=== PATIENT | female | born 1940 | race Caucasian/White ===

== ENCOUNTER 2020-09-29 08:00 | Outpatient (CLI) | payer MEDICARE, OTHER ==
[2020-09-29 18:15] LABS: BASOPHILS # (AUTO) 0.1 10^3/uL (0.0-0.1); BASOPHILS % (AUTO) 0.7 %; EOSINOPHILS # (AUTO) 0.3 10^3/uL (0.0-0.7); EOSINOPHILS % (AUTO) 3.5 %; HCT - HEMATOCRIT 50.7 % (37.0-47.0); HGB - HEMOGLOBIN 16.1 g/dL (12.0-16.0); LYMPHOCYTES # (AUTO) 1.8 10^3/uL (1.5-3.5); LYMPHOCYTES % (AUTO) 24.9 %; MEAN CORPUSCULAR HEMOGLOBIN 29.4 pg (27.0-31.0); MEAN CORPUSCULAR HGB CONC 31.8 g/dL (32.0-36.0); MEAN CORPUSCULAR VOLUME 92.7 fL (81.0-99.0); MEAN PLATELET VOLUME 10.5 fL (7.9-10.8); MONOCYTES # (AUTO) 0.7 10^3/uL (0.0-1.0); MONOCYTES % (AUTO) 9.7 %; NEUTROPHILS # (AUTO) 4.4 10^3/uL (1.5-6.6); NEUTROPHILS % (AUTO) 60.8 %; PLT - PLATELET COUNT 293 10^3/uL (130-450); RED BLOOD COUNT 5.47 10^6/uL (4.20-5.40); RED CELL DISTRIBUTION WIDTH 13.3 % (12.0-15.0); WHITE BLOOD COUNT 7.2 x10^3/uL (4.8-10.8)
[2020-09-29 18:31] LABS: BILIRUBIN,URINE NEGATIVE (NEGATIVE); GLUCOSE, URINE (UA) NEGATIVE (NEGATIVE); KETONES,URINE (UA) NEGATIVE (NEGATIVE); LEUKOCYTE ESTERASE, URINE NEGATIVE (NEGATIVE); NITRITE,URINE NEGATIVE (NEGATIVE); OCCULT BLOOD,URINE NEGATIVE (NEGATIVE); PH,URINE 6.5 PH (5.0-7.5); PROTEIN,URINE NEGATIVE (NEGATIVE); UROBILINOGEN,URINE 0.2 (NORMAL) E.U./dL (NORMAL)
[2020-09-29 18:35] LABS: BACTERIA,URINE None Seen /HPF (None Seen); CLARITY,URINE CLEAR (CLEAR); CRYSTALS,URINE 3-5 Calcium Oxalate /LPF; RBC,URINE 0-5 /HPF (0-5); SQUAMOUS EPITHELIAL CELL,UR FEW Squamous (<= Few); WBC,URINE 0-3 /HPF (0-5)
[2020-09-29 18:42] LABS: ALBUMIN 4.1 g/dL (3.2-5.5); ALKALINE PHOSPHATASE 101 IU/L (42-121); ALT ALANINE AMINOTRANSFERASE 23 IU/L (10-60); AST ASPARTATE AMINOTRANSFERASE 24 IU/L (10-42); BILIRUBIN,TOTAL 0.7 mg/dL (0.2-1.0); BUN - BLOOD UREA NITROGEN 18 mg/dL (6-20); CALCIUM 9.9 mg/dL (8.5-10.3); CARBON DIOXIDE - CO2 30 mmol/L (21-32); CHLORIDE 104 mmol/L (101-111); CHOL/HDL RATIO 3.8 (<4.4); CHOLESTEROL 203 mg/dL; CREATININE 0.9 mg/dL (0.4-1.0); GFR - MDRD 60 (>89); GLUCOSE 102 mg/dL (70-100); HDL CHOLESTEROL 53 mg/dL; LDL CHOLESTEROL,CALCULATED 127 mg/dL; LDL/HDL RATIO 2.4 (<4.4); POTASSIUM 4.2 mmol/L (3.5-5.0); SODIUM 141 mmol/L (135-145); TOTAL PROTEIN 8.2 g/dL (6.7-8.2); TRIGLYCERIDES 113 mg/dL; VLDL CHOLESTEROL 23 mg/dL
[2020-09-29 18:53] LABS: THYROID STIMULATING HORMONE 1.79 uIU/mL (0.34-5.60)
== END 2020-09-29 23:59 | disposition home or self-care (01) ==
LOC: LAB.WCP 08:00
PROVIDERS: ATTEND Family Medicine
DX: N20.0 Calculus of kidney (principal); E66.9 Obesity, unspecified; E78.5 Hyperlipidemia, unspecified; M54.5 Low back pain; G89.29 Other chronic pain; I10 Essential (primary) hypertension
CPT/HCPCS: 36415; 80053; 80061; 81001; 83721; 84443; 85025; 87086

== ENCOUNTER 2021-02-15 10:42 | Outpatient (CLI) | payer MEDICARE, OTHER ==
--- NOTE | 2021-02-15 11:30 | XRAY Report ---
PROCEDURE: Hip w/Pelvis 2-3V RT INDICATIONS: RIGHT HIP JOINT PAIN TECHNIQUE: AP pelvis with lateral view(s) of the right hip(s). COMPARISON: None. FINDINGS: Bones: No fractures or dislocations. Pelvic ring appears intact. No suspicious bony lesions. Ther e is mild symmetric hip joint degenerative osteoarthritis, without trauma. Note is made of a 1.2 cm n onspecific sclerotic focus within the left iliac bone just beneath the medial left iliac crests. The etiology is uncertain, and it would be beneficial to establish chronicity. Soft tissues: The visualized bowel gas pattern is normal. No suspicious soft tissue calcifications. IMPRESSION: Mild symmetric bilateral hip joint osteoarthritis, without trauma. A source of asymmetri c right-sided predominant pain is not identified. As discussed above there is a 1.2 cm mildly irregular sclerotic focus within the marrow space of the medial left iliac crest area, without atypical appearance of bone island. It would be beneficial to o btain old comparison films may show this area to establish chronicity. If comparison studies are not available for review a follow-up pelvis plain film in 3 and 6 months thereafter (assuming stability) is recommended. This could represent a neoplastic process and requires follow-up. Reviewed by: Helio Denton MD on 02/15/2021 11:29 AM PDT Approved by: Helio Denton MD on 02/15/2021 11:29 AM PDT Station ID: [id number]
--- NOTE | 2021-02-15 13:46 | XRAY Report ---
PROCEDURE: Lumbar Spine 2 View INDICATIONS: CHRONIC LOWER BACK PAIN TECHNIQUE: 2 views of the lumbar spine were acquired. COMPARISON: None. FINDINGS: Bones: 5 [id number] vertebrae are present. There is normal bony alignment. No vertebral body compression fractures. No suspicious bony lesions. There are multilevel degenerative changes with a nterior osteophytes and posterior disc osteophytes at multiple levels. Facet arthrosis is seen in the lower lumbar spine with grade 1 anterolisthesis of L4-5. Disc space narrowing in the lumbar spine at L2-3, L3-4, and L5-S1 are consistent with disc disease. Disc space narrowing the lower thoracic spin e is also present. An X stop device is present at L4-5 posteriorly. Soft tissues: Overlying bowel gas pattern is normal. No suspicious soft tissue calcifications. The aorta has atherosclerotic calcifications. IMPRESSION: 1. Multilevel degenerative changes of the lumbar spine. 2. 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 3. Facet arthrosis causing grade 1 anterolisthesis of L4-5. Reviewed by: Shawn Martinez on 02/15/2021 1:44 PM PDT Approved by: Shawn Martinez on 02/15/2021 1:44 PM PDT Station ID: [id number]
== END 2021-02-15 10:43 | disposition home or self-care (01) ==
LOC: DI 10:42
PROVIDERS: ATTEND Family Medicine
DX: M25.551 Pain in right hip (principal); M16.0 Bilateral primary osteoarthritis of hip; R93.6 Abnormal findings on diagnostic imaging of limbs; M47.816 Spondylosis without myelopathy or radiculopathy, lumbar region; M43.16 Spondylolisthesis, lumbar region; M51.36 Other intervertebral disc degeneration, lumbar region; M51.37 Other intervertebral disc degeneration, lumbosacral region; Z98.890 Other specified postprocedural states

== ENCOUNTER 2021-05-16 13:22 | Emergency (ER) | payer MEDICARE, OTHER ==
[2021-05-16 13:58] LABS: BASOPHILS # (AUTO) 0.1 10^3/uL (0.0-0.1); BASOPHILS % (AUTO) 0.8 %; EOSINOPHILS # (AUTO) 0.3 10^3/uL (0.0-0.7); EOSINOPHILS % (AUTO) 3.4 %; HCT - HEMATOCRIT 48.6 % (37.0-47.0); HGB - HEMOGLOBIN 15.7 g/dL (12.0-16.0); LYMPHOCYTES # (AUTO) 1.8 10^3/uL (1.5-3.5); LYMPHOCYTES % (AUTO) 19.7 %; MEAN CORPUSCULAR HEMOGLOBIN 29.9 pg (27.0-31.0); MEAN CORPUSCULAR HGB CONC 32.3 g/dL (32.0-36.0); MEAN CORPUSCULAR VOLUME 92.6 fL (81.0-99.0); MEAN PLATELET VOLUME 9.8 fL (7.9-10.8); MONOCYTES # (AUTO) 0.9 10^3/uL (0.0-1.0); MONOCYTES % (AUTO) 9.4 %; NEUTROPHILS % (AUTO) 66.1 %; PLT - PLATELET COUNT 277 10^3/uL (130-450); RED BLOOD COUNT 5.25 10^6/uL (4.20-5.40); RED CELL DISTRIBUTION WIDTH 13.2 % (12.0-15.0); WHITE BLOOD COUNT 9.1 x10^3/uL (4.8-10.8)
[2021-05-16 13:59] LABS: BILIRUBIN,URINE NEGATIVE (NEGATIVE); GLUCOSE, URINE (UA) NEGATIVE (NEGATIVE); KETONES,URINE (UA) NEGATIVE (NEGATIVE); LEUKOCYTE ESTERASE, URINE NEGATIVE (NEGATIVE); NITRITE,URINE NEGATIVE (NEGATIVE); OCCULT BLOOD,URINE NEGATIVE (NEGATIVE); PROTEIN,URINE NEGATIVE (NEGATIVE); UROBILINOGEN,URINE 0.2 (NORMAL) E.U./dL (NORMAL)
[2021-05-16 14:01] LABS: CLARITY,URINE CLEAR (CLEAR)
[2021-05-16] MEDS ORDERED: IOVERSOL 320 100 ML VIAL IVP ONE (14:13)
--- NOTE | 2021-05-16 14:22 | ED Physician Documentation ---
History of Present Illness - Stated complaint Stated Complaint: R SIDE PX/SENT BY - Chief complaint Chief Complaint: Abd Pain - History obtained from History obtained from: Patient - Additonal information Additional information: Pt comes emergency department chief complaint of right lower back pain that started about 2 days ago. No specific trigger. Patient denies trauma. No fevers or chills. No nausea or vomiting. No dysuria or hematuria. Patient has a history of diverticulitis which has been on the right side, but she states that she has generally had pain in the right lower quadrant and suprapubic area during these episodes, she does not have this time. She does note that the pain now radiates eights into her right flank. No history of kidney stones. No other complaints at this time. No loss of bowel or bladder function. No numbness or weakness in her lower extremities. Review of Systems Ten Systems: 10 systems reviewed and negative Constitutional: reports: Reviewed and negative Eyes: reports: Reviewed and negative Ears: reports: Reviewed and negative Nose: reports: Reviewed and negative Throat: reports: Reviewed and negative Cardiac: reports: Reviewed and negative Respiratory: reports: Reviewed and negative GI: reports: Reviewed and negative. denies: Abdominal Pain, Nausea : reports: Reviewed and negative Skin: reports: Reviewed and negative Musculoskeletal: reports: Back pain Neurologic: reports: Reviewed and negative Psychiatric: reports: Reviewed and negative Endocrine: reports: Reviewed and negative Immunocompromised: reports: Reviewed and negative PD PAST MEDICAL HISTORY - Past Medical History Past Medical History: Yes Cardiovascular: Hypertension Respiratory: None Neuro: None Endocrine/Autoimmune: None GI: None [employer]: None : None HEENT: None Psych: None Musculoskeletal: Chronic back pain Derm: Herpes zoster - Past Surgical History Past Surgical History: Yes General: Appendectomy Ortho: Spine surgery /[employer]: Hysterectomy - Present Medications Home Medications: Ambulatory Orders Medication Instructions Recorded Confirmed Cyanocobalamin (Vitamin B-12) 1,000 mcg PO DAILY 05/16/21 05/16/21 [Vitamin B12] Cyclobenzaprine [Flexeril] 10 mg PO TID PRN #20 tablet 05/16/21 Losartan [Cozaar] 50 mg PO DAILY 05/16/21 05/16/21 Naproxen Sodium [Aleve] 440 mg PO HS 05/16/21 05/16/21 Ubidecarenone [Co Q-10] 200 mg PO DAILY 05/16/21 05/16/21 - Allergies Allergies/Adverse Reactions: Allergies Allergy/AdvReac Type Severity Reaction Status Date / Time nitrofurantoin Allergy Hives Verified 05/16/21 13:31 [From Macrodantin] - Social History Does the pt smoke?: No Smoking Status: Former smoker Does the pt drink ETOH?: Yes ETOH Use: Wine Does the pt have substance abuse?: No - Immunizations Immunizations are current?: Yes PD ED PE NORMAL - Vitals Vital signs reviewed: Yes - General General: Alert and oriented X 3, No acute distress, Well developed/nourished - HEENT HEENT: Atraumatic, PERRL, EOMI, Moist mucous membranes - Neck Neck: Supple, no meningeal sign - Cardiac Cardiac: RRR, No murmur, Strong equal pulses - Respiratory Respiratory: No respiratory distress, Clear bilaterally - Abdomen Abdomen: Soft, Non tender, Non distended - Back Back: No spinal TTP, Other (Tenderness of her right CVA and slightly lower.) - Derm Derm: Normal color, Warm and dry, No rash - Extremities Extremities: No deformity, No edema - Neuro Neuro: Alert and oriented X 3 - Psych Psych: Normal mood, Normal affect Results - Vitals Vitals: Vital Signs - 24 hr 05/16/21 05/16/21 13:31 14:55 Temperature 37.6 C Heart Rate 92 80 Respiratory 20 18 Rate Blood Pressure 159/93 H 157/79 H O2 Saturation 97 96 Oxygen O2 Source Room air - Labs Labs: Laboratory Tests 05/16/21 05/16/21 05/16/21 13:50 13:50 13:50 WBC 9.1 RBC 5.25 Hgb 15.7 Hct 48.6 H MCV 92.6 MCH 29.9 MCHC 32.3 RDW 13.2 Plt Count 277 MPV 9.8 Neut # (Auto) 6.0 Lymph # (Auto) 1.8 [place] # (Auto) 0.9 Eos # (Auto) 0.3 Baso # (Auto) 0.1 Absolute Nucleated RBC 0.00 Nucleated RBC % 0.0 Sodium 138 Potassium 3.5 Chloride 101 Carbon Dioxide 28 Anion Gap 9.0 BUN 20 Creatinine 1.0 Estimated GFR (MDRD) 53 L Glucose 97 Calcium 9.4 Total Bilirubin 0.5 AST 29 ALT 26 Alkaline Phosphatase 93 Total Protein 8.6 H Albumin 4.3 Globulin 4.3 H Albumin/Globulin Ratio 1.0 Lipase 48 Urine Color YELLOW Urine Clarity CLEAR Urine pH 7.0 Ur Specific [place] 1.010 Urine Protein NEGATIVE Urine Glucose (UA) NEGATIVE Urine Ketones NEGATIVE Urine Occult Blood NEGATIVE Urine Nitrite NEGATIVE Urine Bilirubin NEGATIVE Urine Urobilinogen 0.2 (NORMAL) Ur Leukocyte Esterase NEGATIVE Ur Microscopic Review NOT INDICATED Urine Culture Comments NOT INDICATED - Rads (name of study) Abdomen and pelvis CT Radiology: Final report received, EMP read indepedently, See rad report (nad) PD MEDICAL DECISION MAKING - ED course Complexity details: reviewed results, re-evaluated patient, considered differential, d/w patient ED course: Patient was treated symptomatically with Toradol and worked up with labs and CT of the abdomen and pelvis. Unfortunately, our power went out due to weather conditions and an ER abdominal panel was not able to be run on this patient. CT scan was negative. I felt the patient's pain was most consistent with a muscular etiology. We have treated her with Toradol here in the emergency department and I prescribed Flexeril. We have discussed home management symptoms and usual indications for return. Departure - Departure Disposition: 01 Home, Self Care Clinical Impression: Lumbar back pain Condition: Stable Instructions: ED Neck Back Pain General Prescriptions: Cyclobenzaprine [Flexeril] 10 mg PO TID PRN #20 tablet PRN Reason: Spasms Comments: Your chest CT scan showed no diverticulitis or kidney stone that is currently passing. You have a small stone in your right kidney which is not currently passing. I suspect your back pain is probably muscular in nature, given the lack of internal findings and the very focused area of tenderness. You may take ibuprofen along with the Flexeril that has been prescribed. If your pain goes on for more than a week, please follow-up with your primary care physician. Discharge Date/Time: 05/16/21 15:52
[2021-05-16 14:29] LABS: ALBUMIN 4.3 g/dL (3.2-5.5); BILIRUBIN,TOTAL 0.5 mg/dL (0.2-1.0); CALCIUM 9.4 mg/dL (8.5-10.3); POTASSIUM 3.5 mmol/L (3.5-5.0); TOTAL PROTEIN 8.6 g/dL (6.7-8.2)
[2021-05-16] MEDS ORDERED: KETOROLAC 30 MG/ML VIAL IVP STA (14:42)
--- NOTE | 2021-05-16 14:53 | CT Report ---
PROCEDURE: Abdomen/Pelvis WO INDICATIONS: R flank pain TECHNIQUE: Noncontrast 5 mm thick sections acquired from the diaphragms to the symphysis. 5 mm coronal and sagi ttal reformats were then performed. For radiation dose reduction, the following was used: automated exposure control, adjustment of mA and/or kV according to patient size. COMPARISON: None. FINDINGS: Image quality: Excellent. ABDOMEN: Lung bases: There is atelectasis and scarring the lung bases. Heart size is normal. Solid organs: Evaluation of the liver demonstrates no focal hepatic lesions. Gallbladder appears wit hin normal limits without calcified gallstones. Biliary system is non dilated. The spleen is normal in size. Pancreas demonstrates mild fatty infiltration without peripancreatic fat stranding or fluid collections. No adrenal nodules. Kidneys demonstrate no hydronephrosis. There is a small oval fat-c ontaining mass within the right kidney anteriorly measuring up to 2.2 cm consistent with an angiomyol ipoma. There is a posterior exophytic cyst also noted within the right kidney measuring up to 4.2 cm. A small calcification within the interpolar region of the right kidney measuring up to 0.2 cm likely represents a nonobstructing renal stone. There is minimal nonspecific perinephric stranding bilatera lly. The ureters are nondistended. Peritoneum and bowel: Unenhanced bowel loops demonstrate normal wall thickness and caliber. No peric ecal inflammatory changes to suggest appendicitis. There is colonic diverticulosis without acute dive rticulitis. No free fluid or air. Nodes and vessels: No retroperitoneal or mesenteric adenopathy by size criteria. Aorta and inferior vena cava are normal in caliber. Miscellaneous: No ventral hernias. PELVIS: Genitourinary: Bladder wall thickness is normal. Miscellaneous: No inguinal hernias or adenopathy. Bones: No suspicious bony lesions. No vertebral body compression fractures. IMPRESSION: 1. No evidence of obstructive uropathy. 2. Small nonobstructing stone within the right kidney. 3. 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 4. No evidence of appendicitis. 5. Colonic diverticulosis without acute diverticulitis. Reviewed by: Robby Lal MD on 05/16/2021 2:52 PM PST Approved by: Robby Lal MD on 05/16/2021 2:52 PM PST Station ID: [id number]
[2021-05-16 14:56] VITALS: BP 157/79
== END 2021-05-16 15:52 | disposition home or self-care (01) ==
LOC: ED 13:22
DX: M54.50 Low back pain, unspecified (principal); Z87.891 Personal history of nicotine dependence; R10.9 Unspecified abdominal pain
CPT/HCPCS: 36415; 80053; 81001; 81003; 83690; 85025; 87086; 96374; 99283

== ENCOUNTER 2021-05-16 13:57 | Outpatient (CLI) | payer MEDICARE, OTHER | END 2021-05-16 13:58 | disposition home or self-care (01) | LOC: LAB 13:57 | PROVIDERS: ATTEND Family Medicine | DX: R10.9 Unspecified abdominal pain (principal) | CPT/HCPCS: 87086 ==

== ENCOUNTER 2021-12-10 10:04 | Outpatient (CLI) | payer MEDICARE, OTHER ==
[2021-12-10 19:09] LABS: BASOPHILS # (AUTO) 0.1 10^3/uL (0.0-0.1); EOSINOPHILS # (AUTO) 0.3 10^3/uL (0.0-0.7); EOSINOPHILS % (AUTO) 3.6 %; HCT - HEMATOCRIT 49.4 % (37.0-47.0); HGB - HEMOGLOBIN 15.9 g/dL (12.0-16.0); LYMPHOCYTES # (AUTO) 1.6 10^3/uL (1.5-3.5); LYMPHOCYTES % (AUTO) 22.1 %; MEAN CORPUSCULAR HEMOGLOBIN 29.3 pg (27.0-31.0); MEAN CORPUSCULAR HGB CONC 32.2 g/dL (32.0-36.0); MEAN PLATELET VOLUME 10.2 fL (7.9-10.8); MONOCYTES # (AUTO) 0.6 10^3/uL (0.0-1.0); MONOCYTES % (AUTO) 8.4 %; NEUTROPHILS # (AUTO) 4.7 10^3/uL (1.5-6.6); NEUTROPHILS % (AUTO) 64.3 %; PLT - PLATELET COUNT 278 10^3/uL (130-450); RED BLOOD COUNT 5.43 10^6/uL (4.20-5.40); RED CELL DISTRIBUTION WIDTH 13.2 % (12.0-15.0); WHITE BLOOD COUNT 7.2 x10^3/uL (4.8-10.8)
[2021-12-10 19:40] LABS: THYROID STIMULATING HORMONE 1.99 uIU/mL (0.34-5.60)
[2021-12-10 19:48] LABS: ALKALINE PHOSPHATASE 97 IU/L (42-121); ALT ALANINE AMINOTRANSFERASE 19 IU/L (10-60); AST ASPARTATE AMINOTRANSFERASE 21 IU/L (10-42); BILIRUBIN,TOTAL 0.7 mg/dL (0.2-1.0); BUN - BLOOD UREA NITROGEN 19 mg/dL (6-20); CALCIUM 9.4 mg/dL (8.5-10.3); CARBON DIOXIDE - CO2 29 mmol/L (21-32); CHLORIDE 103 mmol/L (101-111); CHOL/HDL RATIO 3.8 (<4.4); CHOLESTEROL 189 mg/dL; CREATININE 1.1 mg/dL (0.4-1.0); GFR - MDRD 48 (>89); GLUCOSE 104 mg/dL (70-100); HDL CHOLESTEROL 50 mg/dL; LDL CHOLESTEROL,CALCULATED 111 mg/dL; LDL/HDL RATIO 2.2 (<4.4); POTASSIUM 4.3 mmol/L (3.5-5.0); SODIUM 138 mmol/L (135-145); TOTAL PROTEIN 8.1 g/dL (6.7-8.2); TRIGLYCERIDES 142 mg/dL; VLDL CHOLESTEROL 28 mg/dL
== END 2021-12-10 10:05 | disposition home or self-care (01) ==
LOC: LAB.N 10:04
PROVIDERS: ATTEND Family Medicine
DX: M54.50 Low back pain, unspecified (principal); E53.8 Deficiency of other specified B group vitamins; E66.3 Overweight; E78.5 Hyperlipidemia, unspecified; I10 Essential (primary) hypertension; R10.9 Unspecified abdominal pain; G89.29 Other chronic pain
CPT/HCPCS: 36415; 80053; 80061; 82607; 83721; 84443; 85025; 87086

== ENCOUNTER 2021-12-28 13:13 | Outpatient (CLI) | payer MEDICARE, OTHER ==
--- NOTE | 2021-12-28 17:55 | Ultrasound Report ---
PROCEDURE: Arterial Visceral Complete INDICATIONS: KIDNEY CYST,ELEVATED CREATININE, ANGIOMYOLIPOMA OF TECHNIQUE: Real time scanning was performed of both kidneys, followed by Color and pulsed Doppler in terrogation of the renal vessels. COMPARISON: None FINDINGS: Aortic peak systolic velocity: 69.2 cm/s. Right side: Soares-scale imaging: Kidney is 10.5 cm long; renal cortical thickness is 1.4 cm. No hydronephrosis. No nephrolithiasis. Renal cortex is normal in echogenicity. No suspicious solid renal masses. Proximal renal artery peak systolic velocity: 101 cm/s. Mid renal artery peak systolic velocity: 143.9 cm/s. Distal renal artery peak systolic velocity: 130.3 cm/s. Renal vein: Patent, without thrombus. Peak renal/aortic ratio (RAR): 2.1. Left side: Soares-scale imaging: Kidney is 10.6 cm long; renal cortical thickness is 1.2 cm. No hydronephrosis. No nephrolithiasis. Renal cortex is normal in echogenicity. No suspicious solid renal masses. Proximal renal artery peak systolic velocity: 136.3 cm/s. Mid-renal artery peak systolic velocity: 105 cm/s. Distal renal artery peak systolic velocity: 97.9 cm/s. Renal vein: Patent, without thrombus. Peak renal/aortic ratio (RAR): 2.0. IMPRESSION: 1. Normal-sized kidneys with no evidence of hydronephrosis or mass. 2. No evidence of renal artery stenosis. Reviewed by: Doroteo Fine MD on 12/28/2021 5:54 PM PDT Approved by: Doroteo Fine MD on 12/28/2021 5:54 PM PDT Station ID: [id number]
== END 2021-12-28 13:14 | disposition home or self-care (01) ==
LOC: DI 13:13
PROVIDERS: ATTEND Physician Assistant
DX: N28.1 Cyst of kidney, acquired (principal); D30.00 Benign neoplasm of unspecified kidney; R79.89 Other specified abnormal findings of blood chemistry
CPT/HCPCS: 93975

== ENCOUNTER 2022-01-25 10:40 | Outpatient (CLI) | payer MEDICARE, OTHER ==
--- NOTE | 2022-01-30 10:21 | Mammography Report ---
BILATERAL DIGITAL SCREENING MAMMOGRAM 3D/2D: 01/25/2022 CLINICAL: Routine screening. Additional films were requested but not obtained. There are scattered fibroglandular elements in bot h breasts. No significant masses, calcifications, or other findings are seen in either breast. IMPRESSION: NEGATIVE There is no mammographic evidence of malignancy. A 1 year screening mammogram is recommended. Based on the Tyrer Cuzick model (a risk assessment model) the patients lifetime risk is 0.6% and her 10 year risk is 0.0%. According to the ACR, ACS, and NCCN guidelines, an annual breast MRI exam shan g with mammogram is recommended if the patients lifetime risk is 20% or greater. This exam was interpreted at Station ID: [id number]. NOTE: For mammograms, a report in lay terms will be sent to the patient. Approximately 15% of breast malignancies will not be visualized mammographically. In the management of a palpable breast mass, a negative mammogram must not discourage biopsy of a clinically suspicious lesion. Electronically Signed By: Stew em/danna:01/30/2022 08:19:16 ACR BI-RADS Category 1: Negative 3341F PARENCHYMAL PATTERN: (A) - The breast(s) demonstrate(s) scattered fibroglandular densities. BI-RADS CATEGORY: (1) - 1 RECOMMENDATION: (ANNUAL) - Recommend routine annual screening mammography. [id number] 1 year screening LATERALITY: (B)
== END 2022-01-25 10:41 | disposition home or self-care (01) ==
LOC: DI.N 10:40
DX: Z12.31 Encounter for screening mammogram for malignant neoplasm of breast (principal)

== ENCOUNTER 2023-03-19 10:01 | Outpatient (CLI) | payer MEDICARE, OTHER ==
[2023-03-19 12:33] LABS: BASOPHILS # (AUTO) 0.1 10^3/uL (0.0-0.1); EOSINOPHILS # (AUTO) 0.4 10^3/uL (0.0-0.7); HCT - HEMATOCRIT 49.6 % (37.0-47.0); HGB - HEMOGLOBIN 15.8 g/dL (12.0-16.0); LYMPHOCYTES # (AUTO) 1.9 10^3/uL (1.5-3.5); LYMPHOCYTES % (AUTO) 25.9 %; MEAN CORPUSCULAR HEMOGLOBIN 28.8 pg (27.0-31.0); MEAN CORPUSCULAR HGB CONC 31.9 g/dL (32.0-36.0); MEAN CORPUSCULAR VOLUME 90.3 fL (81.0-99.0); MEAN PLATELET VOLUME 10.2 fL (7.9-10.8); MONOCYTES # (AUTO) 0.6 10^3/uL (0.0-1.0); NEUTROPHILS # (AUTO) 4.3 10^3/uL (1.5-6.6); NEUTROPHILS % (AUTO) 59.7 %; PLT - PLATELET COUNT 275 10^3/uL (130-450); RED BLOOD COUNT 5.49 10^6/uL (4.20-5.40); RED CELL DISTRIBUTION WIDTH 13.4 % (12.0-15.0); WHITE BLOOD COUNT 7.2 x10^3/uL (4.8-10.8)
[2023-03-19 12:56] LABS: ALBUMIN 4.2 g/dL (3.2-5.5); ALBUMIN/GLOBULIN RATIO 1.2 (1.0-2.2); ALKALINE PHOSPHATASE 91 IU/L (42-121); ALT ALANINE AMINOTRANSFERASE 21 IU/L (10-60); AST ASPARTATE AMINOTRANSFERASE 23 IU/L (10-42); BILIRUBIN,TOTAL 0.6 mg/dL (0.2-1.0); BUN - BLOOD UREA NITROGEN 18 mg/dL (6-20); CALCIUM 9.5 mg/dL (8.5-10.3); CARBON DIOXIDE - CO2 29 mmol/L (21-32); CHLORIDE 107 mmol/L (101-111); CHOL/HDL RATIO 3.8 (<4.4); CHOLESTEROL 192 mg/dL; GFR - MDRD 53 (>89); GLUCOSE 112 mg/dL (74-104); HDL CHOLESTEROL 50 mg/dL; LDL CHOLESTEROL,CALCULATED 115 mg/dL; LDL/HDL RATIO 2.3 (<4.4); POTASSIUM 4.6 mmol/L (3.5-4.5); SODIUM 141 mmol/L (135-145); TOTAL PROTEIN 7.8 g/dL (6.4-8.9); TRIGLYCERIDES 137 mg/dL (48-352); VLDL CHOLESTEROL 27 mg/dL
[2023-03-19 13:04] LABS: THYROID STIMULATING HORMONE 1.88 uIU/mL (0.34-5.60)
== END 2023-03-19 10:02 | disposition home or self-care (01) ==
LOC: LAB.N 10:01
PROVIDERS: ATTEND Physician Assistant
DX: I10 Essential (primary) hypertension (principal); E78.5 Hyperlipidemia, unspecified; Z79.899 Other long term (current) drug therapy
CPT/HCPCS: 36415; 80053; 80061; 83721; 84443; 85025

== ENCOUNTER 2023-12-31 08:00 | Outpatient (CLI) | payer MEDICARE, OTHER ==
[2023-12-31 20:53] LABS: BILIRUBIN,URINE NEGATIVE (NEGATIVE); GLUCOSE, URINE (UA) NEGATIVE (NEGATIVE); KETONES,URINE (UA) NEGATIVE (NEGATIVE); LEUKOCYTE ESTERASE, URINE NEGATIVE (NEGATIVE); NITRITE,URINE NEGATIVE (NEGATIVE); OCCULT BLOOD,URINE MODERATE (NEGATIVE); PROTEIN,URINE NEGATIVE (NEGATIVE); UROBILINOGEN,URINE 0.2 (NORMAL) E.U./dL (NORMAL)
[2023-12-31 21:12] LABS: BACTERIA,URINE Many /HPF (None Seen); CLARITY,URINE CLOUDY (CLEAR); CRYSTALS,URINE 11-25 Ca Oxalate /LPF; SQUAMOUS EPITHELIAL CELL,UR FEW Squamous (<= Few)
== END 2023-12-31 23:59 | disposition home or self-care (01) ==
LOC: LAB.N 08:00
PROVIDERS: ATTEND Family Medicine
DX: R30.0 Dysuria (principal)
CPT/HCPCS: 81001; 87086

== ENCOUNTER 2024-01-14 08:00 | Outpatient (CLI) | payer MEDICARE, OTHER ==
[2024-01-14 19:02] LABS: BILIRUBIN,URINE NEGATIVE (NEGATIVE); GLUCOSE, URINE (UA) NEGATIVE (NEGATIVE); KETONES,URINE (UA) NEGATIVE (NEGATIVE); LEUKOCYTE ESTERASE, URINE NEGATIVE (NEGATIVE); NITRITE,URINE NEGATIVE (NEGATIVE); OCCULT BLOOD,URINE LARGE (NEGATIVE); PROTEIN,URINE TRACE mg/dL (NEGATIVE); UROBILINOGEN,URINE 0.2 (NORMAL) E.U./dL (NORMAL)
[2024-01-14 19:18] LABS: CLARITY,URINE CLOUDY (CLEAR)
[2024-01-14 20:26] LABS: BACTERIA,URINE Many /HPF (None Seen); SQUAMOUS EPITHELIAL CELL,UR NONE SEEN (<= Few); WBC,URINE 0-3 /HPF (0-5)
== END 2024-01-14 23:59 | disposition home or self-care (01) ==
LOC: LAB.N 08:00
PROVIDERS: ATTEND Family Medicine
DX: R31.21 Asymptomatic microscopic hematuria (principal)
CPT/HCPCS: 81001; 87086

== ENCOUNTER 2024-01-17 08:00 | Outpatient (CLI) | payer MEDICARE, OTHER | END 2024-01-17 23:59 | disposition home or self-care (01) | LOC: LAB.N 08:00 | PROVIDERS: ATTEND Physician Assistant | DX: R30.0 Dysuria (principal) | CPT/HCPCS: 87086; 87181 ==

== ENCOUNTER 2024-01-31 00:55 | Day surgery (SDC) | payer MEDICARE, OTHER ==
[2024-01-31] MEDS: KETOROLAC TROMETHAMINE 0.5% OPHTH DROPS 5 ML ONE (09:55)
[2024-01-31] MEDS: CYCLOPENTOLATE 1% OPHTH DROPS 2 ML ONE (09:55)
[2024-01-31] MEDS: PHENYLEPHRINE 2.5% OPHTH 2 ML DROPS ONE (09:55)
[2024-01-31] MEDS: PROPARACAINE 0.5% OPHTH DROPS 15 ML ONE (09:55)
[2024-01-31] MEDS: LACTATED RINGERS 1,000 ML IV ONE (09:59)
[2024-01-31] MEDS ORDERED: MIDAZOLAM 2 MG/2 ML VIAL ONE (11:13)
[2024-01-31] MEDS ORDERED: TRIAMCIN/MOXIFLOX OPHTHALMIC 0.6 ML VIAL IO ONE (12:06)
[2024-01-31] MEDS ORDERED: EPINEPHrine 1 MG/ML AMP ONE (12:06)
[2024-01-31] MEDS ORDERED: BSS/LIDOCAINE/EPINEPHRINE 1 ML VIAL ONE (12:07)
[2024-01-31] MEDS ORDERED: BRIMONIDINE 0.2% OPHTH DROPS 5 ML ONE (12:07)
[2024-01-31] MEDS ORDERED: TIMOLOL 0.5% OPHTH DROPS ONE (12:07)
[2024-01-31] MEDS: BRIMONIDINE 0.2% OPHTH DROPS 5 ML OPTH ONE (12:10)
[2024-01-31] MEDS: BSS/LIDOCAINE/EPINEPHRINE 1 ML SYRINGE IO ONE (12:11)
[2024-01-31] MEDS: TIMOLOL 0.5% OPHTH DROPS OPTH ONE (12:11)
[2024-01-31] MEDS: TRIAMCIN/MOXIFLOX OPHTHALMIC 0.6 ML VIAL IO ONE (12:11)
[2024-01-31] MEDS: EPINEPHrine 1 MG/ML AMP IR ONE (12:11)
[2024-01-31] MEDS: VANCOMYCIN OPHTH (TOPICAL) 10 MG/ML SYRINGE TOP ONE (12:12)
[2024-01-31] MEDS: PROPARACAINE 0.5% OPHTH DROPS 15 ML EACHEYE ONE (12:12)
[2024-01-31] MEDS ORDERED: fentaNYL 100 MCG/2 ML VIAL ONE (12:30)
[2024-01-31] MEDS: LACTATED RINGERS 700 ML IV ONE ×2 (12:45→13:16)
--- NOTE | 2024-01-31 12:45 | OPERATIVE REPORT ---
Operative Report - Other Other Information/Narrative: Date of Surgery: 01/31/24 Preop Dx: Visually significant cataract right eye. This was the first cataract surgery. Postop Dx: Same Procedure: Phacoemulsification with posterior chamber intraocular lens implant right eye Surgeon: Dr. aBldemar Contreras Anesthesia: Monitored anesthesia care Complications: None Operative Indications: This is a 83-year-old F with progressive vision loss in the right eye due to 2+ nuclear sclerotic, 3+ cortical, and 1+ posterior subcapsular cataract. Best corrected visual acuity was 20/25 with glare to 20/630 vision in the right eye. Indications for surgery were: - Difficulty seeing words, closed captions, or game scores on TV - Difficulty seeing street signs - Difficulty with glare or bright lights in any situation The patient was consented at length concerning the risks and benefits of cataract surgery after which the patient expressed a desire to proceed with surgery. Operative Procedure: The patient was taken into OR#3 and placed under monitored anesthesia care. A surgical time-out was conducted confirming correct patient, correct procedure, and correct surgical site. The patient was given topical anesthesia and then prepped and draped in the usual sterile fashion. The eye was entered at the 6 and 3 oclock positions. Intracameral Shugarcaine was injected into the anterior chamber followed by a dispersive viscoelastic. A continuous-tear curvilinear capsulorhexis was performed. The nucleus was hydrodissected and phacoemulsified. The cortex was evacuated using automated infusion and aspiration. A cohesive viscoelastic was injected into the capsular bag and a 17.5 diopter intraocular lens was inserted into the bag. Infusion and aspiration were used to evacuate the viscoelastic materials from the eye. The wounds were hydrated and the eye inflated to physiologic pressure using balanced salt solution. Approximately 0.25ml of a mixture of triamcinolone and moxifloxacin was injected trans-sclerally into the vitreous in the inferotemporal quadrant using a 30 gauge cannula. An additional 0.25ml of a mixture of triamcinolone and moxifloxacin was injected subconjunctivally in the superior quadrant for infection and inflammation prophylaxis. Wound integrity was checked with Weck-Nayely sponges. The patient was taken from the operating room in good condition and given post-op instructions.
[2024-01-31 13:03] VITALS: BP 134/52; O2SAT 94
--- NOTE | 2024-01-31 16:56 | ANESTHESIA ---
Pre-Anesthesia VS, & Labs - Diagnosis right eye cataract - Procedure right eye cataract extraction with IOL implant Vital Signs: Temp Pulse Resp BP Pulse Ox O2 Flow Rate 36.1 C L 85 16 134/52 H 94 0 01/31/24 12:57 01/31/24 12:57 01/31/24 12:57 01/31/24 12:57 01/31/24 12:57 01/31/24 09:53 Height: 5 ft 2 in Weight (kg): 86 kg Body Mass Index: 34.7 BMI Classification: Obese - NPO >8 hours - Is Patient ?: No Home Medications and Allergies Home Medications: Ambulatory Orders Cyanocobalamin (Vitamin B-12) [Vitamin B-12] 1,000 mcg PO DAILY 01/30/24 Cyanocobalamin (Vitamin B-12) [Vitamin B12] 1,000 mcg PO DAILY 05/16/21 Losartan [Cozaar] 50 mg PO DAILY 05/16/21 Naproxen Sodium [Aleve] 440 mg PO HS 05/16/21 Ubidecarenone [Co Q-10] 200 mg PO DAILY 05/16/21 Cyanocobalamin (Vitamin B-12) [Vitamin B-12] 1,000 mcg PO DAILY 01/30/24 Allergies/Adverse Reactions: Allergies Allergy/AdvReac Type Severity Reaction Status Date / Time codeine Allergy Unknown Verified 01/31/24 10:07 nitrofurantoin Allergy Hives Verified 01/30/24 13:48 [From Macrodantin] Anes History & Medical History - Anesthetic History Anesthesia Complications: reports: No previous complications - Medical History Cardiovascular: reports: Hypertension Pulmonary: reports: None Gastrointestinal: reports: None Urinary: reports: None Neuro: reports: None Musculoskeletal: reports: Chronic back pain Endocrine/Autoimmune: reports: None Blood Disorders: reports: None Skin: reports: Herpes zoster Smoking Status: Former smoker Psychosocial: reports: No issues indicated History of Cancer?: No - Surgical History General: reports: Appendectomy Gynecologic: reports: Hysterectomy Orthopedic: reports: Spine surgery Exam General: Alert, Oriented x3, Cooperative, No acute distress Dental: WNL Mouth Openin Fingerbreadth Neck Mobility: Normal Mallampati classification: III Thyromental Distance: 4-6 cm Mental/Cognitive Status: Alert/Oriented X3, Normal for patient Plan Anesthesia Type: MAC Consent for Procedure(s) Verified and Reviewed: Yes Code Status: Attempt Resuscitation ASA classification: 2-Mild systemic disease Is this case an emergency?: No
--- NOTE | 2024-01-31 16:56 | ANESTHESIA POST OP EVALUATION ---
Anesthesia Post Eval - Post Anesthesia Eval Vitals: Last Vital Signs Temp 36.1 C L 01/31/24 12:57 Pulse 85 01/31/24 12:57 Resp 16 01/31/24 12:57 BP 134/52 H 01/31/24 12:57 Pulse Ox 94 01/31/24 12:57 O2 Flow Rate 0 01/31/24 09:53 CV Function Including HR & BP: Stable Pain Control: Satisfactory Nausea & Vomiting: Negative Mental Status: Baseline Respiratory Status: Airway Patent Hydration Status: Satisfactory Anesthesia Complications: None
== END 2024-01-31 00:56 | disposition home or self-care (01) ==
LOC: SDS 00:55
PROVIDERS: ATTEND Ophthalmology
DX: H25.811 Combined forms of age-related cataract, right eye (principal); I10 Essential (primary) hypertension; E66.9 Obesity, unspecified; Z68.34 Body mass index [BMI] 34.0-34.9, adult
CPT/HCPCS: 66984; A9270; J3490; J7120

== ENCOUNTER 2024-03-06 07:54 | Day surgery (SDC) | payer MEDICARE, OTHER ==
--- NOTE | 2024-03-06 06:54 | ANESTHESIA ---
Pre-Anesthesia VS, & Labs - Diagnosis L senile combined cataract - Procedure L extraction cataract with IOL Height: 5 ft 2 in - NPO >8 hours Last Fluid Intake: am h20 sips - Is Patient ?: No - Lab Results Lab results reviewed: Yes Home Medications and Allergies Cyanocobalamin (Vitamin B-12) [Vitamin B12] 1,000 mcg PO DAILY 05/16/21 Losartan [Cozaar] 50 mg PO DAILY 05/16/21 Naproxen Sodium [Aleve] 440 mg PO HS 05/16/21 Ubidecarenone [Co Q-10] 200 mg PO DAILY 05/16/21 Allergies/Adverse Reactions: Allergies Allergy/AdvReac Type Severity Reaction Status Date / Time codeine Allergy Unknown Verified 03/05/24 14:13 nitrofurantoin Allergy Hives Verified 03/05/24 14:13 [From Macrodantin] Anes History & Medical History - Anesthetic History Anesthesia Complications: reports: No previous complications Family history of Anesthesia Complications: Denies Family history of Malignant Hyperthermia: Denies - Medical History Cardiovascular: reports: Hypertension Pulmonary: reports: None Gastrointestinal: reports: None Urinary: reports: None Neuro: reports: None Musculoskeletal: reports: Chronic back pain Endocrine/Autoimmune: reports: None Blood Disorders: reports: None Skin: reports: Herpes zoster Smoking Status: Former smoker - Surgical History General: reports: Appendectomy Eyes Ears Nose Throat (EENT): reports: Cataracts Gynecologic: reports: Hysterectomy Orthopedic: reports: Spine surgery Exam General: Alert, Oriented x3, Cooperative Dental: WNL Mouth Openin Fingerbreadth Neck Mobility: Normal Mallampati classification: III Thyromental Distance: 4-6 cm Respiratory: Lungs clear, Normal breath sounds, No respiratory distress Cardiovascular: Regular rate Neurological: Normal speech Mental/Cognitive Status: Alert/Oriented X3, Normal for patient Cognitive Status: Within normal limits Plan Anesthesia Type: MAC Consent for Procedure(s) Verified and Reviewed: Yes Code Status: Attempt Resuscitation ASA classification: 2-Mild systemic disease Is this case an emergency?: No
[2024-03-06] MEDS: LACTATED RINGERS 1,000 ML IV ONE ×2 (08:00→09:53)
[2024-03-06] MEDS: KETOROLAC TROMETHAMINE 0.5% OPHTH DROPS 5 ML ONE (08:15)
[2024-03-06] MEDS: PHENYLEPHRINE 2.5% OPHTH 2 ML DROPS ONE (08:15)
[2024-03-06] MEDS: CYCLOPENTOLATE 1% OPHTH DROPS 2 ML ONE (08:15)
[2024-03-06] MEDS: PROPARACAINE 0.5% OPHTH DROPS 15 ML ONE (08:15)
[2024-03-06] MEDS ORDERED: MIDAZOLAM 2 MG/2 ML VIAL ONE (08:56)
[2024-03-06] MEDS ORDERED: TRIAMCIN/MOXIFLOX OPHTHALMIC 0.6 ML VIAL IO ONE (09:04)
[2024-03-06] MEDS ORDERED: EPINEPHrine 1 MG/ML AMP ONE (09:04)
[2024-03-06] MEDS ORDERED: BRIMONIDINE 0.2% OPHTH DROPS 5 ML ONE (09:05)
[2024-03-06] MEDS ORDERED: TIMOLOL 0.5% OPHTH DROPS ONE (09:05)
[2024-03-06] MEDS ORDERED: BSS/LIDOCAINE/EPINEPHRINE 1 ML VIAL ONE (09:05)
[2024-03-06] MEDS: EPINEPHrine 1 MG/ML AMP IR ONE (09:29)
[2024-03-06] MEDS: BRIMONIDINE 0.2% OPHTH DROPS 5 ML OPTH ONE (09:29)
[2024-03-06] MEDS: PROPARACAINE 0.5% OPHTH DROPS 15 ML LEFTEYE ONE (09:30)
[2024-03-06] MEDS: TRIAMCIN/MOXIFLOX OPHTHALMIC 0.6 ML VIAL IO ONE (09:30)
[2024-03-06] MEDS: VANCOMYCIN OPHTH (TOPICAL) 10 MG/ML SYRINGE TOP ONE (09:30)
[2024-03-06] MEDS: BSS/LIDOCAINE/EPINEPHRINE 1 ML SYRINGE IO ONE (09:30)
[2024-03-06] MEDS: TIMOLOL 0.5% OPHTH DROPS OPTH ONE (09:30)
--- NOTE | 2024-03-06 09:45 | OPERATIVE REPORT ---
Operative Report - Other Other Information/Narrative: Date of Surgery: 03/06/24 Preop Dx: Visually significant cataract left eye. Cataract surgery was performed in the right eye on . Postop Dx: Same Procedure: Phacoemulsification with posterior chamber intraocular lens implant left eye Surgeon: Dr. Baldemar Contreras Anesthesia: Monitored anesthesia care Complications: None Operative Indications: This is a 83-year-old F with progressive vision loss in the left eye due to 2+ nuclear sclerotic, 3+ cortical, and 1+ posterior subcapsular cataract. Best corrected visual acuity was 20/30 with glare to 20/150 vision in the left eye. Indications for surgery were: - Difficulty seeing words on a computer screen - Difficulty reading - Difficulty seeing words, closed captions, or game scores on TV - Difficulty driving in low light or at night - Difficulty driving at night because of headlights from other vehicles - Difficulty with glare or bright lights in any situation The patient was consented at length concerning the risks and benefits of cataract surgery after which the patient expressed a desire to proceed with surgery. Operative Procedure: The patient was taken into OR#3 and placed under monitored anesthesia care. A surgical time-out was conducted confirming correct patient, correct procedure, and correct surgical site. The patient was given topical anesthesia and then prepped and draped in the usual sterile fashion. The eye was entered at the 6 and 3 oclock positions. Intracameral Shugarcaine was injected into the anterior chamber followed by a dispersive viscoelastic. A continuous-tear curvilinear capsulorhexis was performed. The nucleus was hydrodissected and phacoemulsified. The cortex was evacuated using automated infusion and aspiration. A cohesive viscoelastic was injected into the capsular bag and a 17.5 diopter intraocular lens was inserted into the bag. Infusion and aspiration were used to evacuate the viscoelastic materials from the eye. The wounds were hydrated and the eye inflated to physiologic pressure using balanced salt solution. Approximately 0.25ml of a mixture of triamcinolone and moxifloxacin was injected trans-sclerally into the vitreous in the inferotemporal quadrant using a 30 gauge cannula. An additional 0.25ml of a mixture of triamcinolone and moxifloxacin was injected subconjunctivally in the superior quadrant for infection and inflammation prophylaxis. Wound integrity was checked with Weck-Nayely sponges. The patient was taken from the operating room in good condition and given post-op instructions.
--- NOTE | 2024-03-06 09:48 | ANESTHESIA POST OP EVALUATION ---
Anesthesia Post Eval - Post Anesthesia Eval Vitals: Last Vital Signs Temp 36.4 C L 03/06/24 09:40 Pulse 80 03/06/24 09:40 Resp 16 03/06/24 09:40 BP 121/61 03/06/24 09:40 Pulse Ox 98 03/06/24 09:40 O2 Flow Rate CV Function Including HR & BP: Stable Pain Control: Satisfactory Nausea & Vomiting: Negative Mental Status: Baseline Respiratory Status: Airway Patent Hydration Status: Satisfactory Anesthesia Complications: None
[2024-03-06 10:15] VITALS: BP 122/65; O2SAT 100
== END 2024-03-06 07:55 | disposition home or self-care (01) ==
LOC: SDS 07:54
PROVIDERS: ATTEND Ophthalmology
DX: H25.812 Combined forms of age-related cataract, left eye (principal); I10 Essential (primary) hypertension; Z87.891 Personal history of nicotine dependence
CPT/HCPCS: 66984; A9270; J3490; J7120